=== PATIENT | male | born 1980 | race Caucasian/White ===

== ENCOUNTER 2024-04-19 08:44 | Emergency (ER) | payer SELFPAY ==
[~2024-04-19] VITALS: Ht 162.6 cm; Wt 79.0 kg
[2024-04-19 08:57] VITALS: O2SAT 98
[2024-04-19] MEDS ORDERED: TOPUD MT (09:32)
[2024-04-19] MEDS ORDERED: ERYT-141 MT (09:32)
[2024-04-19] MEDS ORDERED: IBUP-1523 MT (09:32)
[2024-04-19 09:51] VITALS: BP 134/78; PULSE 71; RESP 18; TEMP 98.7
== END 2024-04-19 09:52 | disposition home or self-care (01) ==
LOC: ER 09:06
DX: J02.9 Acute pharyngitis, unspecified (principal); Z88.8 Allergy status to other drugs, medicaments and biological substances
CPT/HCPCS: 99283